=== PATIENT | female | born 1970 | race Caucasian/White ===

== ENCOUNTER 2022-07-25 16:46 | Emergency (ER) | payer BC ==
[2022-07-25] MEDS ORDERED: Ondansetron ODT 4 MG TAB ONE (17:26)
[2022-07-25] MEDS ORDERED: Morphine 2 MG/ML VIAL ONE (17:26)
[2022-07-25] MEDS ORDERED: Morphine 4 MG/ML VIAL ONE (17:26)
== END 2022-07-25 18:47 | disposition home or self-care (01) ==
LOC: MADERS 16:46
DX: M51.26 Other intervertebral disc displacement, lumbar region (principal); I10 Essential (primary) hypertension; Z79.899 Other long term (current) drug therapy
CPT/HCPCS: 96372; 99283; J2270; J2272; Q0162